=== PATIENT | male | born 1985 | race Caucasian/White ===

== ENCOUNTER 2018-11-15 13:47 | Emergency (ER) | payer MEDICAID ==
[2018-11-15] MEDS ORDERED: Etomidate 2 MG/ML 10 ML SDV IVPUSH ONE (14:00)
[2018-11-15] MEDS ORDERED: Succinylcholine 200 MG/10 ML MDV IV ONE (14:00)
[2018-11-15] MEDS ORDERED: Sodium Chloride 0.9% 1,000 ML IV SCH (14:15)
[2018-11-15] MEDS ORDERED: Piperacillin/Tazobactam 4.5 GM in Sodium Chloride 0.9% 100 ML IV SCH (14:15)
--- NOTE | 2018-11-15 14:23 | EDM.PDOC ---
ED HPI GENERAL MEDICAL PROBLEM - General Stated Complaint: UNRESPONSIVE Time Seen by Provider: 11/15/18 14:03 Source of Information: Reports: EMS History Limitations: Reports: Altered Mental Status (GCS of 3) - History of Present Illness INITIAL COMMENTS - FREE TEXT/NARRATIVE: 32-year-old gentleman presents emergency department today via EMS services he is unresponsive at this time GCS of 4, gentleman has been ill prior week per family members but unknown details, last known well time was 9:00 last night was found this afternoon unresponsive EMS services were called for transport. Therefore no review of systems is obtained - Related Data Home Meds: Home Meds Insulin Aspart [NovoLOG] 2 units SQ QIDACANDBED 12/03/14 [History] Insulin Glarg,Human.Rec.Analog [LantUS] 20 unit SUBCUT DAILY 12/03/14 [History] Past Medical History Other Musculoskeletal History: surgery to right leg rods in femur - Past Surgical History Other Musculoskeletal Surgeries/Procedures:: femure rods Social & Family History - Tobacco Use Smoking Status *Q: Unknown Ever Smoked ED ROS GENERAL - Review of Systems Review Of Systems: Unable To Obtain ED EXAM, SEPSIS - Physical Exam Exam: See Below Text/Narrative:: Primary survey airway is open patent mucous membranes are dry, however GCS of 4 he responds to pain rectal exam with eye opening, otherwise no other response. Breath sounds are coarse bilaterally cardiovascular demonstrates a regular rate and rhythm S1-S2 General: GCS of 4, HEENT: head is atraumatic normocephalic, eyes pupils equal round and nonreactive to light and dilated fixed. Ears tympanic membrane clear and valle on the left blocked by cerumen on the right. Nose no septal deviation , nares are clear, no blood present. Mouth mucosa is dry and pink no erythema or exudate noted in soft palate, tongue is midline uvula is midline, dentition is intact. Neck: Supple no thyromegaly no tracheal deviation. Nodes: Cervical nodes subclavicular nodes nontender no palpable lymphadenopathy noted. Lungs: Coarse breath sounds bilaterally. CV: Regular rate and rhythm S1 and S2 appreciated no murmurs rubs or gallops noted. Abdomen: Soft, nontender, no palpable masses or organomegaly appreciated, no distention no guarding bowel sounds are present, [ Skin: Warm and dry, intact Extremities: +1 pitting edema, pedal pulse is +2. ED SEPSIS PROCEDURES - Endotracheal Intubation Time of Intubation: 14:00 ET Intubation Indication: Airway Protection Preparation: Suction, Balloon Tested, BVM Set Up, Difficult Airway Equip Pre-Oxygenation: Other (99% before intubation) Anesthesia Meds: Etomidate, Propofol, Succinylcholine Placement: Cuffed Cords Visualized: Yes, Grade 1 ETT Size In mm: 7.0 Number of Attempts: 1 Confirmed By: CO2 Indicator, Bilateral Breath Sounds, Chest Xray (Initially 21 cm at the teeth with drawn to 19 cm after x-ray) Tube Secured By: By RN Endotracheal Intubation Comment: Environmental Science Instructor(s):Wale Officer Indication: Airway protection Consent: None Pre-airway Assessment: History: Not available Oral Aperture: 3 fingers Thyromental Distance (sniffing position): 3 fingers Hyroid the thyroid distance: 2 fingers Mallampati Airway Class: unable to assess Other factors pertinent to difficult airway: not found Pre-oxygenation: The patient was pre-oxygenated had O2 saturation 99% before intubation. The head of bed was at 0 degrees. Position, Pretreatment, Induction, and Paralysis: After pre-oxygenation the patient was placed in the supine sniffing position. The following medications were administered intravenously: 24 mg of etomidate with 120 mg succinylcholine Protection: Sellick's maneuver was not performed. Bag-mask ventilation was easy. Placement and Proof: Indirect laryngoscopy was performed with a glide scope GVL 3. After placement of the glide scope cords were easily visualized 87.0 intubation tube with a stylette was used to pass balloon through the vocal cords, next stylette was removed balloon was inflated to 10 mL entitle CO2 was placed on top of the ET tube bagging was easy per respiratory therapy colorimetric change was yellow Tracheal placement of the tube was confirmed by auscultation and colorimetric change. The total number of attempts at laryngoscopy (direct and indirect) was 1. The tube was secured at 21 cm at the teeth/gums. CXR for tube placement is chest x-ray initially showed tube tip near the right mainstem ET tube was withdrawn 2 cm to 19 second chest x-ray is pending. Complications: None apparent Course - Vital Signs Last Recorded V/S: Last Vital Signs Temp 89.8 F L 11/15/18 14:09 Pulse 79 11/15/18 15:23 Resp 12 11/15/18 15:23 BP 129/68 11/15/18 15:23 Pulse Ox 100 11/15/18 15:23 - Orders/Labs/Meds Orders: Active Orders 24 hr Category Date Time Status Vital Signs [RC] Q1H Care 11/15/18 14:08 Active Chest 1V Frontal [CR] Stat Exams 11/15/18 14:05 Taken Chest 1V Frontal [CR] Urgent Exams 11/15/18 14:27 Ordered Head wo Cont [CT] Stat Exams 11/15/18 14:05 Taken CULTURE BLOOD [BC] Urgent Lab 11/15/18 14:08 Ordered CULTURE BLOOD [BC] Urgent Lab 11/15/18 14:35 Received DRUG SCREEN, URINE [URCHEM] Stat Lab 11/15/18 15:25 Ordered INR,PT,PROTHROMBIN TIME [COAG] Stat Lab 11/15/18 15:25 Ordered Insulin Regular, Human [HumuLIN R] 100 unit Med 11/15/18 14:45 Active Sodium Chloride 0.9% [Normal Saline] 99 ml IV TITRATE Norepinephrine [Levophed] 4 mg Med 11/15/18 14:45 Active Dextrose 5% in Water 246 ml IV TITRATE Piperacillin/Tazobactam/Dext [Zosyn in Dextrose Iso- Med 11/15/18 14:50 Active Osmotic] 4.5 gm Premix Bag 1 bag IV Q6H Propofol [Diprivan 100 ML] 100 ml Med 11/15/18 15:00 Active IV TITRATE Sodium Bicarbonate [Sodium Bicarbonate 8.4%] 100 meq Med 11/15/18 15:15 Active Sodium Chloride 0.9% [Normal Saline] 1,000 ml IV ONETIME Sodium Chloride 0.9% [Normal Saline] 1,000 ml Med 11/15/18 14:15 Active IV ASDIRECTED Blood Culture x2 Reflex Set [OM.PC] Urgent Oth 11/15/18 14:08 Ordered Nasogastric Orogastric Tube Insertion [OM.PC] Routine Oth 11/15/18 14:21 Ordered Medication Orders Sodium Chloride (Normal Saline) 1,000 mls @ 999 mls/hr IV ASDIRECTED LADY Insulin Human Regular 100 unit (/ Sodium Chloride) 100 mls @ 6.35 mls/hr IV TITRATE LADY; Protocol Last Admin: 11/15/18 14:43 Dose: 0.1 units/kg/hr, 6.35 mls/hr Norepinephrine Bitartrate 4 mg (/ Dextrose/Water) 250 mls @ 7.5 mls/hr IV TITRATE LADY; Protocol Last Admin: 11/15/18 14:56 Dose: 2 mcg/min, 7.5 mls/hr Piperacillin/Tazobactam/ (Dextrose 4.5 gm/ Premix) 100 mls @ 200 mls/hr IV Q6H LADY Last Admin: 11/15/18 14:56 Dose: 200 mls/hr Propofol (Diprivan 100 Ml) 100 mls @ 1.905 mls/hr IV TITRATE LADY; Protocol Sodium Bicarbonate 100 meq/ (Sodium Chloride) 1,100 mls @ 250 mls/hr IV ONETIME ONE Stop: 11/15/18 19:38 Labs: Laboratory Tests 11/15/18 11/15/18 11/15/18 Range/Units 14:08 14:08 14:08 WBC 28.0 H (4.5-11.0) K/uL RBC 3.90 L (4.30-5.90) M/uL Hgb 12.4 (12.0-15.0) g/dL Hct 41.0 (40.0-54.0) % MCV 105 H (80-98) fL MCH 32 H (27-31) pg MCHC 30 L (32-36) % Plt Count 493 H (150-400) K/uL Neut % (Auto) 76 H (36-66) % Lymph % (Auto) 15 L (24-44) % Letcher % (Auto) 8 H (2-6) % Eos % (Auto) 1 L (2-4) % Baso % (Auto) 1 (0-1) % Puncture Site ABG pH (7.350-7.450) ABG pCO2 (35.0-42.0) mmHg ABG pO2 (75.0-100.0) mmHg ABG HCO3 (22.0-26.0) mmol/L ABG Total CO2 (23.0-27.0) mmol/L ABG O2 Saturation (95.0-98.0) % ABG O2 Content (15.0-23.0) %vol ABG Base Excess mm/L ABG Hemoglobin (13.5-18.0) g/dL ABG Oxyhemoglobin % ABG Carboxyhemoglobin (0.0-1.6) % ABG Methemoglobin % Michael Test O2 Delivery Device Sodium 124 L (140-148) mmol/L Potassium 7.8 H* (3.6-5.2) mmol/L Chloride 86 L (100-108) mmol/L Carbon Dioxide 4 L (21-32) mmol/L Anion Gap 41.8 H (5.0-14.0) mmol/L BUN 46 H (7-18) mg/dL Creatinine 3.3 H (0.8-1.3) mg/dL Est Cr Clr Drug Dosing TNP Estimated GFR (MDRD) 22 L (>60) Glucose 1340 H* (74-106) mg/dL Lactic Acid 5.2 H (0.4-2.0) mmol/L Calcium 9.2 (8.5-10.1) mg/dL Phosphorus (2.5-4.9) mg/dL Magnesium (1.8-2.4) mg/dL Total Bilirubin 0.6 (0.2-1.0) mg/dL AST 157 H (15-37) U/L ALT 107 H (12-78) U/L Alkaline Phosphatase 216 H (46-116) U/L C-Reactive Protein 0.07 (0.0-0.3) mg/dL Total Protein 6.3 L (6.4-8.2) g/dL Albumin 2.7 L (3.4-5.0) g/dL Globulin 3.6 H (2.3-3.5) g/dL Albumin/Globulin Ratio 0.8 L (1.2-2.2) Urine Color Urine Appearance Urine pH (4.5-8.0) Ur Specific [place] (1.008-1.030) Urine Protein (NEGATIVE) mg/dL Urine Glucose (UA) (NEGATIVE) mg/dL Urine Ketones (NEGATIVE) mg/dL Urine Occult Blood (NEGATIVE) Urine Nitrite (NEGAITVE) Urine Bilirubin (NEGATIVE) Urine Urobilinogen (NORMAL) mg/dL Ur Leukocyte Esterase (NEGATIVE) Urine RBC (0-5) Urine WBC (0-5) Ur Epithelial Cells Amorphous Sediment Urine Bacteria Urine Mucus 11/15/18 11/15/18 11/15/18 Range/Units 14:10 14:37 14:38 WBC (4.5-11.0) K/uL RBC (4.30-5.90) M/uL Hgb (12.0-15.0) g/dL Hct (40.0-54.0) % MCV (80-98) fL MCH (27-31) pg MCHC (32-36) % Plt Count (150-400) K/uL Neut % (Auto) (36-66) % Lymph % (Auto) (24-44) % Letcher % (Auto) (2-6) % Eos % (Auto) (2-4) % Baso % (Auto) (0-1) % Puncture Site Rt.radial ABG pH 6.682 L* (7.350-7.450) ABG pCO2 23.9 L (35.0-42.0) mmHg ABG pO2 255.0 H (75.0-100.0) mmHg ABG HCO3 2.7 L (22.0-26.0) mmol/L ABG Total CO2 3.2 L (23.0-27.0) mmol/L ABG O2 Saturation 96.9 (95.0-98.0) % ABG O2 Content 16.4 (15.0-23.0) %vol ABG Base Excess -33.1 mm/L ABG Hemoglobin 11.8 L (13.5-18.0) g/dL ABG Oxyhemoglobin 96.3 % ABG Carboxyhemoglobin -0.8 L (0.0-1.6) % ABG Methemoglobin 1.4 % Michael Test TNP O2 Delivery Device Ventilator Sodium (140-148) mmol/L Potassium (3.6-5.2) mmol/L Chloride (100-108) mmol/L Carbon Dioxide (21-32) mmol/L Anion Gap (5.0-14.0) mmol/L BUN (7-18) mg/dL Creatinine (0.8-1.3) mg/dL Est Cr Clr Drug Dosing Estimated GFR (MDRD) (>60) Glucose (74-106) mg/dL Lactic Acid (0.4-2.0) mmol/L Calcium (8.5-10.1) mg/dL Phosphorus 15.1 H (2.5-4.9) mg/dL Magnesium 3.1 H (1.8-2.4) mg/dL Total Bilirubin (0.2-1.0) mg/dL AST (15-37) U/L ALT (12-78) U/L Alkaline Phosphatase (46-116) U/L C-Reactive Protein (0.0-0.3) mg/dL Total Protein (6.4-8.2) g/dL Albumin (3.4-5.0) g/dL Globulin (2.3-3.5) g/dL Albumin/Globulin Ratio (1.2-2.2) Urine Color Yellow Urine Appearance Clear Urine pH 5.0 (4.5-8.0) Ur Specific [place] 1.015 (1.008-1.030) Urine Protein Negative (NEGATIVE) mg/dL Urine Glucose (UA) >1000 H (NEGATIVE) mg/dL Urine Ketones 150 H (NEGATIVE) mg/dL Urine Occult Blood Negative (NEGATIVE) Urine Nitrite Negative (NEGAITVE) Urine Bilirubin Negative (NEGATIVE) Urine Urobilinogen Normal (NORMAL) mg/dL Ur Leukocyte Esterase Negative (NEGATIVE) Urine RBC 0-5 (0-5) Urine WBC 0-5 (0-5) Ur Epithelial Cells Rare Amorphous Sediment Moderate Urine Bacteria Few Urine Mucus Few Meds: Medications Generic Name Dose Route Start Last Admin Trade Name Freq PRN Reason Stop Dose Admin Sodium Chloride 1,000 mls @ 999 mls/hr 11/15/18 14:15 Normal Saline IV ASDIRECTED LADY Insulin Human Regular 100 unit 100 mls @ 6.35 mls/hr 11/15/18 14:45 11/15/18 14:43 / Sodium Chloride IV 0.1 units/kg/hr TITRATE LADY 6.35 mls/hr Administration Protocol 0.1 UNITS/KG/HR Norepinephrine Bitartrate 4 mg 250 mls @ 7.5 mls/hr 11/15/18 14:45 11/15/18 14:56 / Dextrose/Water IV 2 mcg/min TITRATE LADY 7.5 mls/hr Administration Protocol 2 MCG/MIN Piperacillin/Tazobactam/ 100 mls @ 200 mls/hr 11/15/18 14:50 11/15/18 14:56 Dextrose 4.5 gm/ Premix IV 200 mls/hr Q6H LADY Administration Propofol 100 mls @ 1.905 mls/hr 11/15/18 15:00 Diprivan 100 Ml IV TITRATE LADY Protocol 5 MCG/KG/MIN Sodium Bicarbonate 100 meq/ 1,100 mls @ 250 mls/hr 11/15/18 15:15 Sodium Chloride IV 11/15/18 19:38 ONETIME ONE Discontinued Medications Generic Name Dose Route Start Last Admin Trade Name Azarq PRN Reason Stop Dose Admin Etomidate 24 mg 11/15/18 14:00 Amidate IVPUSH 11/15/18 14:01 ONETIME ONE Sodium Bicarbonate 100 meq/ 1,100 mls @ 250 mls/hr 11/15/18 14:50 11/15/18 14 :50 Potassium Chloride/Sodium IV 250 mls/hr Chloride Q4H LADY Administration Succinylcholine Chloride 120 mg 11/15/18 14:00 Quelicin IV 11/15/18 14:01 ONETIME ONE Departure - Departure Time of Disposition: 15:29 Disposition: DC/Tfer to [facility] 02 Condition: Poor Clinical Impression: Sepsis Qualifiers: Sepsis type: sepsis due to unspecified organism Qualified Code(s): A41.9 - Sepsis, unspecified organism DKA (diabetic ketoacidoses) Qualifiers: Diabetes mellitus type: type 1 Diabetes mellitus complication detail: with coma Qualified Code(s): E10.11 - Type 1 diabetes mellitus with ketoacidosis with coma - Discharge Information Referrals: PCP,None [Primary Care Provider] - - My Orders Last 24 Hours: My Active Orders 11/15/18 14:08 Vital Signs [RC] Q1H CULTURE BLOOD [BC] Urgent Blood Culture x2 Reflex Set [OM.PC] Urgent 11/15/18 14:15 Sodium Chloride 0.9% [Normal Saline] 1,000 ml IV ASDIRECTED 11/15/18 14:21 Nasogastric Orogastric Tube Insertion [OM.PC] Routine 11/15/18 14:27 Chest 1V Frontal [CR] Urgent 11/15/18 14:35 CULTURE BLOOD [BC] Urgent 11/15/18 14:45 Insulin Regular, Human [HumuLIN R] 100 unit Sodium Chloride 0.9% [Normal Saline] 99 ml IV TITRATE Norepinephrine [Levophed] 4 mg Dextrose 5% in Water 246 ml IV TITRATE 11/15/18 14:50 Piperacillin/Tazobactam/Dext [Zosyn in Dextrose Iso-Osmotic] 4.5 gm Premix Bag 1 bag IV Q6H 11/15/18 15:00 Propofol [Diprivan 100 ML] 100 ml IV TITRATE 11/15/18 15:15 Sodium Bicarbonate [Sodium Bicarbonate 8.4%] 100 meq Sodium Chloride 0.9% [ Normal Saline] 1,000 ml IV ONETIME 11/15/18 15:25 DRUG SCREEN, URINE [URCHEM] Stat INR,PT,PROTHROMBIN TIME [COAG] Stat - Assessment/Plan Last 24 Hours: My Active Orders 11/15/18 14:08 Vital Signs [RC] Q1H CULTURE BLOOD [BC] Urgent Blood Culture x2 Reflex Set [OM.PC] Urgent 11/15/18 14:15 Sodium Chloride 0.9% [Normal Saline] 1,000 ml IV ASDIRECTED 11/15/18 14:21 Nasogastric Orogastric Tube Insertion [OM.PC] Routine 11/15/18 14:27 Chest 1V Frontal [CR] Urgent 11/15/18 14:35 CULTURE BLOOD [BC] Urgent 11/15/18 14:45 Insulin Regular, Human [HumuLIN R] 100 unit Sodium Chloride 0.9% [Normal Saline] 99 ml IV TITRATE Norepinephrine [Levophed] 4 mg Dextrose 5% in Water 246 ml IV TITRATE 11/15/18 14:50 Piperacillin/Tazobactam/Dext [Zosyn in Dextrose Iso-Osmotic] 4.5 gm Premix Bag 1 bag IV Q6H 11/15/18 15:00 Propofol [Diprivan 100 ML] 100 ml IV TITRATE 11/15/18 15:15 Sodium Bicarbonate [Sodium Bicarbonate 8.4%] 100 meq Sodium Chloride 0.9% [ Normal Saline] 1,000 ml IV ONETIME 11/15/18 15:25 DRUG SCREEN, URINE [URCHEM] Stat INR,PT,PROTHROMBIN TIME [COAG] Stat Plan: Assessment Acuity = acute Site and laterality = DKA sepsis Etiology = unknown etiology Manifestations = unresponsiveness Location of injury = Home Lab values = WBC elevated at 28 consistent leukocytosis pH 6.68 PCO2 24 bicarbonate 2.7 consistent with metabolic acidosis, sodium low at 124 consistent hyponatremia uncorrected, potassium elevated 7.8 consistent hyperkalemia, creatinine elevated 3.3 consistent acute renal failure stage G for glucose elevated 1340 consistent hyperglycemia lactic acid elevated 5.2 consistent lactic acidosis AST elevated 157 sage T elevated 107 consistent with elevated liver enzymes albumin low at 2.7 consistent hypoalbuminemia initial chest x-ray did show ET tube at 21 cm was starting to enter into the right mainstem ET tube withdrawn 2 cm shows good placement of the ET tube. Initial reading head CT is pending Plan Called discussed case with Dr. Jacinto critical care at [facility] at 1500 he kindly accepted the patient in transport he will be transported via air care thus far he has received 2 L of fluids initiated norepinephrine drip initiated antibiotics of Zosyn blood cultures are pending initiated 100 mEq of bicarbonate Critical care time 45 minutes This note was dictated using [employer] voice recognition software please call with any questions on syntax or grammar.
[2018-11-15] MEDS ORDERED: Norepinephrine 4 MG in Dextrose 5% in Water 246 ML IV SCH ×2 (14:45)
[2018-11-15] MEDS ORDERED: KCL IV SCH (14:50)
[2018-11-15] MEDS ORDERED: SODIUM BICARBONATE IV SCH (14:50)
[2018-11-15] MEDS ORDERED: Piperacillin/Tazobactam/Dext 4.5 GM in Premix Bag 1 BAG IV SCH (14:50)
[2018-11-15] MEDS ORDERED: NS IV SCH (14:50)
[2018-11-15 15:24] VITALS: BP 129/68
--- NOTE | 2018-11-15 15:44 | CRLCT ---
INDICATION: Unresponsive. TECHNIQUE: Multiple axial images were obtained through the brain without contrast. COMPARISON: None. FINDINGS: The ventricles and sulci are mildly prominent for patient`s age. There is no mass effect or midline shift. There is a 0.5 cm focus of increased attenuation in the brainstem. The valle-white matter differentiation is otherwise unremarkable. There is no fracture identified on bone windows. IMPRESSION: 0.5 cm focus of increased attenuation in the brainstem. A parenchymal hemorrhage cannot be excluded. Recommend MRI of the brain for further evaluation. Report was discussed with Officer on 11/15/2018 at 1641 hours. Dictated by Ricky May MD @ 11/15/2018 3:37:52 PM Please note that all CT scans at this facility use dose modulation, iterative reconstruction, and/or weight-based dosing when appropriate to reduce radiation dose to as low as reasonably achievable. Dictated by: Kip Pace MD @ 11/15/2018 15:42:47 (Electronically Signed)
--- NOTE | 2018-11-15 17:03 | CRLCR ---
Tube placement Portable chest 11/15/2018 at 4:06 p.m. Findings : Demonstrates low lung volumes. Normal cardiac mediastinal silhouette. Diffuse interstitial opacities may represent mild pulmonary edema. No effusion or pneumothorax. Dictated by Silvia Hayden MD @ Nov 15 2018 4:58PM Signed by Dr. Silvia Hayden @ Nov 15 2018 5:00PM
--- NOTE | 2018-11-15 17:26 | CRLCR ---
HISTORY: Tube placement. TECHNIQUE: One view of the chest. COMPARISON: 11/15/2018. FINDINGS: No endotracheal tube is seen on this film. Cardiac size within normal limits. There is no focal lung infiltrate or pulmonary edema. No pneumothorax or significant pleural effusion. IMPRESSION: 1. No endotracheal tube seen on this film. 2. No lung infiltrate or pulmonary edema. Dictated by Ricky May MD @ 11/15/2018 5:24:49 PM Dictated by: Ricky May MD @ 11/15/2018 17:24:53 (Electronically Signed)
--- NOTE | 2018-11-17 08:50 | CR ---
CHEST: Portable 11/15/2018 at 2:11 PM CLINICAL HISTORY:Intubation COMPARISON:None endotracheal tube is been placed in the distal trachea. There is approximately 3 cm from the tremaine. Lung sheehan are clear. Heart size and pulmonary vascularity are normal Impression: Endotracheal tube in the distal third of the trachea Lungs are clear
== END 2018-11-15 16:15 ==
LOC: JP.ED 13:47
DX: A41.9 Sepsis, unspecified organism (principal); E10.11 Type 1 diabetes mellitus with ketoacidosis with coma; Z79.4 Long term (current) use of insulin
CPT/HCPCS: 31500; 36415; 36600; 70450; 71045; 80053; 80305; 81001; 82550; 82803; 83605; 83735; 84100; 85025; 85610; 86140; 87040; 96365; 96366; 96368; 99285; J0330; J1815; J2543; J2704; J3480; J3490; J7030; J7060